=== PATIENT | male | born 1995 | race Caucasian/White ===

== ENCOUNTER 2017-01-11 11:15 | Emergency (ER) | payer OTHER ==
[~2017-01-11] VITALS: Ht 177.8 cm; Wt 99.8 kg
[2017-01-11] MEDS ORDERED: KETOROLAC 30 MG/ML VIAL IVP STA (12:09)
[2017-01-11] MEDS ORDERED: NS 100 ML (IVPB) BAG IV ONE (12:15)
[2017-01-11] MEDS ORDERED: IOHEXOL 350 MG/ML 100 ML (OMNIPAQUE 350) VIAL IV ONE (12:15)
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
[2017-01-11] MEDS ORDERED: NAPR500T PO (13:45)
[2017-01-11] MEDS ORDERED: CYCL10TA9 PO (13:45)
[2017-01-11 14:04] VITALS: BP 138/74
== END 2017-01-11 14:04 | disposition home or self-care (01) ==
LOC: ER 11:18
DX: S16.1XXA Strain of muscle, fascia and tendon at neck level, initial encounter; S20.211A Contusion of right front wall of thorax, initial encounter; F17.200 Nicotine dependence, unspecified, uncomplicated; Y92.89 Other specified places as the place of occurrence of the external cause; V28.4XXA Motorcycle driver injured in noncollision transport accident in traffic accident, initial encounter
CPT/HCPCS: 70450; 71260; 72125; 96374; 99282

== ENCOUNTER 2017-08-12 20:34 | Emergency (ER) | payer SELFPAY ==
[~2017-08-12] VITALS: Ht 177.8 cm; Wt 102.5 kg
[~2017-08-12 20:34] MED LIST: CYCL10TA9 PO; NAPR-1071 PO
[2017-08-12] MEDS ORDERED: NS IV 1000 ML 1,000 ML IV ONE (20:58)
--- NOTE | 2017-08-12 21:18 | Diagnostic Imaging Report ---
INDICATION: Hemoptysis PA and lateral views of the chest are obtained. COMPARISON: No previous study is available for comparison at this time. FINDINGS: Heart size and pulmonary vasculature are within normal limits, and the lungs are clear, bilaterally. IMPRESSION: Unremarkable chest. Dictated by: Dictated on workstation # [id number]
--- NOTE | 2017-08-12 21:29 | ED General ---
General Chief Complaint: Coughing up blood Stated Complaint: COUGHING UP BLOOD Nursing Triage Note: pt reports he has had a cough for a month. last night he smoked meth from a pipe et he is coughing up blood today. reports headache et raw throat. Nursing Sepsis Screen: No Definite Risk Source of Information: Patient Exam Limitations: No Limitations History of Present Illness Date Seen by Provider: Aug 12, 2017 Time Seen by Provider: 20:50 Initial Comments This 21-year-old gentleman presents to the emergency room with complaints of coughing up blood since smoking methamphetamine and becoming intoxicated last night. He also reports having fatigue and cough for up to one month prior to this episode. He reports having never smoked methamphetamines before. He does smoke cigarettes though. He also rarely drinks but did get intoxicated last night. He presents multiple pictures on his mobile phone of dark blood and some dark blood mixed with thick sputum which she has produced over the last 24 hours. He is afebrile and slightly tachycardic. He has discomfort in the chest with breathing and coughing. He denies any other significant health problems. He complains of sore throat and headache as well. Allergies and Home Medications Allergies Coded Allergies: No Known Drug Allergies (Unverified , 01/11/17) Home Medications No Active Prescriptions or Reported Meds Constitutional: no symptoms reported EENTM: no symptoms reported Respiratory: see HPI Cardiovascular: see HPI Gastrointestinal: no symptoms reported Genitourinary: no symptoms reported Musculoskeletal: no symptoms reported Skin: no symptoms reported Psychiatric/Neurological: No Symptoms Reported Hematologic/Lymphatic: No Symptoms Reported Past Eghigre-Xezrsw-Jyigou Hx Patient Social History Alcohol Use: Occasionally Uses Recreational Drug Use: Yes (smoked methamphetamines, marijuana) Smoking Status: Current Everyday Smoker Recent Foreign Travel: No Contact w/Someone Who Travel: No Recent Infectious Disease Expo: No Recent Hopitalizations: No Physical Abuse: No Sexual Abuse: No Mistreated: No Fear: No Seasonal Allergies Seasonal Allergies: No Surgeries History of Surgeries: No Respiratory History of Respiratory Disorde: No Cardiovascular History of Cardiac Disorders: No Neurological History of Neurological Disord: No Reproductive System Hx Reproductive Disorders: No Genitourinary History of Genitourinary Disor: No Gastrointestinal History of Gastrointestinal Di: No Musculoskeletal History of Musculoskeletal Dis: No Endocrine History of Endocrine Disorders: No HEENT History of HEENT Disorders: No Cancer History of Cancer: No Psychosocial History of Psychiatric Problem: No Suicide Risk Score: 0 Family Medical History Significant Family History: No Pertinent Family Hx Physical Exam Vital Signs Vital Signs - First Documented 08/12/17 20:45 Temp 96.6 Pulse 96 Resp 16 B/P (MAP) 156/96 (116) Capillary Refill : Less Than 3 Seconds General Appearance: No Apparent Distress, WD/WN HEENT: PERRL/EOMI, TMs Normal, Normal ENT Inspection, Pharyngeal Erythema Neck: Normal Inspection Respiratory: Lungs Clear, Normal Breath Sounds, No Accessory Muscle Use, No Respiratory Distress Cardiovascular: No Edema, No Murmur, Tachycardia Gastrointestinal: Normal Bowel Sounds, Non Tender, Soft Extremity: Normal Inspection, Non Tender, No Calf Tenderness, No Pedal Edema, Other (negative Greg) Neurologic/Psychiatric: Alert, Oriented x3, No Motor/Sensory Deficits, Normal 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, 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 Norm as Tested Skin: Normal Color, Warm/Dry Progress/Results/Core Measures Suspected Sepsis Recent Fever Within 48 Hours: No Infection Criteria Present: None New/Unexplained Altered Menta: No Sepsis Screen: No Definite Risk Sepsis Diagnosis: SIRS Temperature:96.6 Pulse: 96 Respiratory Rate: 16 Laboratory Tests 08/12/17 21:25: White Blood Count 13.1H Blood Pressure 156 /96 Mean: 116 Laboratory Tests 08/12/17 21:25: Creatinine 1.08, INR Comment 1.0, Platelet Count 299, Total Bilirubin 1.2H Results/Orders Lab Results Laboratory Tests Test 08/12/17 21:25 Range/Units White Blood Count 13.1 H 4.3-11.0 10^3/uL Red Blood Count 5.14 4.35-5.85 10^6/uL Hemoglobin 16.0 13.3-17.7 G/DL Hematocrit 45 40-54 % Mean Corpuscular Volume 88 80-99 FL Mean Corpuscular Hemoglobin 31 25-34 PG Mean Corpuscular Hemoglobin Concent 35 32-36 G/DL Red Cell Distribution Width 12.9 10.0-14.5 % Platelet Count 299 130-400 10^3/uL Mean Platelet Volume 9.0 7.4-10.4 FL Neutrophils (%) (Auto) 74 42-75 % Lymphocytes (%) (Auto) 16 12-44 % Monocytes (%) (Auto) 8 0-12 % Eosinophils (%) (Auto) 1 0-10 % Basophils (%) (Auto) 0 0-10 % Neutrophils # (Auto) 9.8 H 1.8-7.8 X 10^3 Lymphocytes # (Auto) 2.2 1.0-4.0 X 10^3 Monocytes # (Auto) 1.1 H 0.0-1.0 X 10^3 Eosinophils # (Auto) 0.1 0.0-0.3 10^3/uL Basophils # (Auto) 0.0 0.0-0.1 10^3/uL Prothrombin Time 13.4 12.2-14.7 SEC INR Comment 1.0 0.8-1.4 Activated Partial Thromboplast Time 29 24-35 SEC D-Dimer < 0.27 0.00-0.49 UG/ML Sodium Level 138 135-145 MMOL/L Potassium Level 3.9 3.6-5.0 MMOL/L Chloride Level 102 98-107 MMOL/L Carbon Dioxide Level 25 21-32 MMOL/L Anion Gap 11 5-14 MMOL/L Blood Urea Nitrogen 13 7-18 MG/DL Creatinine 1.08 0.60-1.30 MG/DL Estimat Glomerular Filtration Rate > 60 BUN/Creatinine Ratio 12 Glucose Level 101 70-105 MG/DL Calcium Level 10.1 8.5-10.1 MG/DL Total Bilirubin 1.2 H 0.1-1.0 MG/DL Aspartate Amino Transf (AST/SGOT) 22 5-34 U/L Alanine Aminotransferase (ALT/SGPT) 27 0-55 U/L Alkaline Phosphatase 86 40-136 U/L Total Protein 7.6 6.4-8.2 GM/DL Albumin 4.8 H 3.2-4.5 GM/DL My Orders Orders - JULIANN RODRIGES MD Chest Pa/Lat (2 View) (08/12/17 20:51) Cbc With Automated Diff (08/12/17 20:58) Comprehensive Metabolic Panel (08/12/17 20:58) Protime With Inr (08/12/17 20:58) Partial Thromboplastin Time (08/12/17 20:58) Saline Lock/Iv-Start (08/12/17 20:58) Ns Iv 1000 Ml (Sodium Chloride 0.9%) (08/12/17 20:58) Fibrin Degradation Products (08/12/17 21:40) Medications Given in ED Current Medications Medications Dose Ordered Sig/Yelitza Route Start Time Stop Time Status Last Admin Dose Admin Sodium Chloride 1,000 ml @ 0 mls/hr Q0M ONCE IV 08/12/17 20:58 08/12/17 20:59 DC 08/12/17 21:29 1,000 MLS/HR Vital Signs/I&O Vital Sign - Last 12Hours 08/12/17 20:45 Temp 96.6 Pulse 96 Resp 16 B/P (MAP) 156/96 (116) Capillary Refill : Less Than 3 Seconds Blood Pressure Mean: 116 Progress Note : Progress Note Patient received a liter of IV fluids. No abnormalities were found on chest x- ray. D-dimer was negative. After workup hemoptysis was presumed secondary to irritation from smoking methamphetamines. Patient was offered resources for assistance with substance abuse. He is adamant that he has only used methamphetamines once and does not need assistance. Diagnostic Imaging Diagonstic Imaging: Xray Plain Films/CT/US/NM/MRI: chest Comments Chest x-ray viewed by me and report reviewed. See report below: NAME: ROSALBA SOARES [facility] REC#: [id number] PT STATUS: REG ER : 1995 PHYSICIAN: JULIANN RODRIGES MD ADMIT DATE: 08/12/17/ER Draft Date of Exam:08/12/17 CHEST PA/LAT (2 VIEW) INDICATION: Hemoptysis PA and lateral views of the chest are obtained. COMPARISON: No previous study is available for comparison at this time. FINDINGS: Heart size and pulmonary vasculature are within normal limits, and the lungs are clear, bilaterally. IMPRESSION: Unremarkable chest. Dictated on workstation # [id number] Dict: 08/12/172114 Trans: 08/12/172116 EMELIA [id number] Interpreted by: OSCAR VASQUEZ MD Departure Impression Impression: Primary Impression: Hemoptysis Additional Impression: Methamphetamine abuse Disposition: 01 HOME, SELF-CARE Condition: Improved Departure-Patient Inst. Decision time for Depature: 22:05 Referrals: NO,LOCAL PHYSICIAN (PCP/Family) Primary Care Physician Patient Instructions: Coughing up Blood Add. Discharge Instructions: You need to follow-up with a primary care provider soon as possible. Drink plenty of clear liquids. You may take Tylenol (acetaminophen) up to 1000 mg every 6 hours as needed for throat discomfort. Return to emergency room if symptoms worsen. Your symptoms of throat irritation and hemoptysis (coughing up blood) are likely due to the recent methamphetamine exposure. Discontinue use of illicit substances such as methamphetamines and marijuana, and a work toward quitting smoking. Seek the assistance of your doctor if needed. All discharge instructions reviewed with patient and/or family. Voiced understanding. Scripts No Active Prescriptions or Reported Meds JULIANN RODRIGES MD Aug 12, 2017 21:29
[2017-08-12 21:35] LABS: BASOPHILS % (AUTO) 0 % (0-10); EOSINOPHILS # (AUTO) 0.1 10^3/uL (0.0-0.3); EOSINOPHILS % (AUTO) 1 % (0-10); HEMATOCRIT 45 % (40-54); LYMPHOCYTES # (AUTO) 2.2 X 10^3 (1.0-4.0); LYMPHOCYTES % (AUTO) 16 % (12-44); MEAN CORPUSCULAR HEMOGLOBIN 31 PG (25-34); MEAN CORPUSCULAR HGB CONC 35 G/DL (32-36); MEAN CORPUSCULAR VOLUME 88 FL (80-99); MONOCYTES # (AUTO) 1.1 X 10^3 (0.0-1.0); MONOCYTES % (AUTO) 8 % (0-12); NEUTROPHILS # (AUTO) 9.8 X 10^3 (1.8-7.8); NEUTROPHILS % (AUTO) 74 % (42-75); PLATELET COUNT 299 10^3/uL (130-400); RED BLOOD COUNT 5.14 10^6/uL (4.35-5.85); RED CELL DISTRIBUTION WIDTH 12.9 % (10.0-14.5); WHITE BLOOD COUNT 13.1 10^3/uL (4.3-11.0)
[2017-08-12 21:48] LABS: PROTHROMBIN TIME PATIENT 13.4 SEC (12.2-14.7)
[2017-08-12 21:58] LABS: ALANINE AMINOTRANSFERASE 27 U/L (0-55); ALBUMIN 4.8 GM/DL (3.2-4.5); ALKALINE PHOSPHATASE 86 U/L (40-136); BILIRUBIN,TOTAL 1.2 MG/DL (0.1-1.0); BUN/CREATININE RATIO 12; CALCIUM 10.1 MG/DL (8.5-10.1); CARBON DIOXIDE 25 MMOL/L (21-32); CHLORIDE 102 MMOL/L (98-107); CREATININE SERUM 1.08 MG/DL (0.60-1.30); GFR ESTIMATED > 60; GLUCOSE 101 MG/DL (70-105); POTASSIUM 3.9 MMOL/L (3.6-5.0); SODIUM 138 MMOL/L (135-145); TOTAL PROTEIN 7.6 GM/DL (6.4-8.2)
[2017-08-12 22:24] VITALS: BP 145/67
== END 2017-08-12 22:24 | disposition home or self-care (01) ==
LOC: EDUNIT# 20:34 → ER 20:36
DX: R04.2 Hemoptysis (principal); F15.10 Other stimulant abuse, uncomplicated; F17.210 Nicotine dependence, cigarettes, uncomplicated; F12.10 Cannabis abuse, uncomplicated
CPT/HCPCS: 36415; 71046; 80053; 85025; 85379; 85610; 85730; 96360